=== PATIENT | female | born 1940 | race Hispanic/Latino ===

== ENCOUNTER 2018-01-27 11:15 | Inpatient (IN) | payer MEDICARE, OTHER ==
[~2018-01-27] VITALS: Ht 154.9 cm; Wt 93.4 kg
[~2018-01-27 11:15] MED LIST: ASCORBIC ACID500 MG PO; COZAAR25 MG PO; CRESTOR10 MG PO; Calcium Carbonate PO; DOXYCYCLINE HY100 MG PO; FUROSEMIDE20 MG PO; HUMULIN R100 UNIT/2 SQ; Insulin Detemir SQ; LANTUS100 UNITS/ SQ; LEVAQUIN500 MG PO; LEVOTHYROXINE75 MCG PO; LOSARTAN POTASS50 MG PO; MAGNESIUM OXID400 MG PO; Multivitamins/Minerals PO; NOVOLOG100 UNITS/ SQ; PLAVIX75 MG PO; PROTONIX40 MG/ML PO; SANTYL15 GM TP; TRAMADOL-ACETAMI1 EA; ZINC SULFATE220 M1 PO
[2018-01-27 11:59] LABS: BASOPHILS % 0.3 % (0.0-1.0); HEMATOCRIT 36.2 % (34.2-44.1); HEMOGLOBIN 12.1 g/dL (12.0-16.0); LYMPHOCYTES # (AUTO) 1.2 (1.0-3.2); LYMPHOCYTES % 16.6 % (18.0-39.1); MEAN CORPUSCULAR HEMOGLOBIN 33.6 pg (28-32); MEAN CORPUSCULAR HGB CONC 33.4 g/dL (31-35); MEAN CORPUSCULAR VOLUME 100.6 fL (81-99); MONOCYTES % 13.5 % (4.4-11.3); NEUTROPHILS % 68.8 % (38.7-80.0); PLATELET COUNT 162 x10e3/uL (140-360); RED CELL DISTRIBUTION WIDTH 13.1 % (11.7-14.4)
[2018-01-27] MEDS ORDERED: ALBUTEROL/IPRATROPIUM 3 ML NEB NEB ONE (12:00)
[2018-01-27 12:07] LABS: INR 1.41; PARTIAL THROMBOPLASTIN TIME 27.3 seconds (23.8-35.5); PROTHROMBIN TIME 16.2 seconds (11.9-14.5)
[2018-01-27 12:16] LABS: ALBUMIN 3.3 g/dL (3.5-5.0); ALBUMIN/GLOBULIN RATIO 0.8 (0.8-2.0); ANION GAP 11.2 mmol/L (8-16); CALCIUM 8.4 mg/dL (8.4-10.2); CREATININE, SERUM 1.27 mg/dL (0.57-1.11); POTASSIUM 4.2 mmol/L (3.5-5.1)
--- NOTE | 2018-01-27 12:19 | Diagnostic Imaging Report ---
Exam: Head CT without contrast History: Altered mental status Comparison studies: None Technique: Axial images were obtained from the skull base to the vertex. Coronal and sagittal images reconstructed from the axial data. Intravenous contrast: None Findings: Scalp: No abnormalities. Bones: No fractures, blastic or lytic lesions. Brain sulci: Mildly prominent Ventricles: Mild compensatory dilatation. No hydrocephalus. Extra-axial spaces: No masses, no fluid collection. Parenchyma: No mass, acute hemorrhage or acute cortical vascular insults. A few hypodensities in the supratentorial white matter are nonspecific but most compatible with chronic small vessel ischemic changes. Sellar/suprasellar region: No abnormalities. Craniocervical junction: Patent foramen magnum. No Chiari one malformation. Incidental findings: * Intraocular lens replacements related to previous cataract surgery. * Atherosclerotic calcifications in the carotid siphons and intradural vertebral arteries. * Nonspecific partial left mastoid opacification. * Opacified right EAC which could be correlated with direct visualization with nonspecific right middle ear mastoid opacification and sequela chronic inflammation in the right mastoids which are underpneumatized with sclerotic changes. IMPRESSION: No acute abnormalities. Chronic findings: 1. Mild generalized volume loss. 2. Mild supratentorial microvascular ischemic changes. 3. Incidental findings as described. Signed by: Dr. Melchor Celaya M.D. on 01/27/2018 12:16 PM
[2018-01-27 12:22] LABS: CREATINE KINASE MB 3.1 ng/mL (0-5.0)
--- NOTE | 2018-01-27 12:30 | Diagnostic Imaging Report ---
PROCEDURE: A single AP view of the chest. COMPARISON: 09/24/16 INDICATIONS: ALTERED MENTAL STATUS, ELEVATD BLOOD PRESSURE AND SUGAR LEVEL FINDINGS: Lines/tubes: None. Lungs: Limited by body habitus and low volumes. Right mid lung linear atelectasis/scarring. Pleura: There is no pleural effusion or pneumothorax. Heart and mediastinum: Cardiomediastinal silhouette is accentuated by low volumes and technique. Aorta is calcified and tortuous. Bones: No acute bony abnormality. IMPRESSION: Very limited study. No definite acute cardiopulmonary abnormalities. Dictated by: Saw Mckeon M.D. on 01/27/2018 at 12:31 Electronically approved by: Saw Mckeon M.D. on 01/27/2018 at 12:31
[2018-01-27 12:42] LABS: BILIRUBIN,URINE NEGATIVE (NEGATIVE); CLARITY,URINE HAZY (CLEAR); COLOR,URINE YELLOW (YELLOW); KETONES,URINE NEGATIVE (NEGATIVE); LEUKOCYTE ESTERASE ,URINE NEGATIVE (NEGATIVE); NITRITE,URINE NEGATIVE (NEGATIVE); PROTEIN,URINE DIPSTICK 2+ (NEGATIVE); URINE UROBILINOGEN 1 mg/dL (0.2 - 1)
[2018-01-27 12:53] LABS: ABG PCO2 56 mmHg (41-51); ABG PH 7.38 (7.31-7.41)
[2018-01-27 12:53] LABS: BACTERIA,URINE MANY /HPF; EPITHELIAL CELLS,URINE FEW /LPF; MUCUS,URINE FEW (RARE); RBC,URINE 0-5 /HPF (0-5)
[2018-01-27 12:54] LABS: ABG HCO3 33 mmol/L (23-28); ABG PO2 72 mmHg (80-105)
[2018-01-27] MEDS ORDERED: DEXTROSE 50% SYRINGE 50 ML IV PRN ×2 (13:30→18:15)
[2018-01-27] MEDS ORDERED: FUROSEMIDE INJ 10 MG/ML 4 ML VIAL IV ONE (14:15)
--- NOTE | 2018-01-27 14:29 | Diagnostic Imaging Report ---
PROCEDURE: A single AP view of the chest. COMPARISON: Same day at 1156 hrs. INDICATIONS: HYPOXIA FINDINGS: Lines/tubes: None. Lungs: Low lung volumes and body habitus limits evaluation. Unchanged right lower lung field linear atelectasis or scarring. Central vascular congestion, accentuated by low lung volumes. Pleura: There is no significant pleural effusion or pneumothorax. Heart and mediastinum: The cardiac silhouette is enlarged on this AP view. Bones: No acute bony abnormality. IMPRESSION: Limited study as above. No significant interval change from prior exam. Central vascular congestion, accentuated by low lung volumes. Dictated by: Saw Mckeon M.D. on 01/27/2018 at 14:30 Electronically approved by: Saw Mckeon M.D. on 01/27/2018 at 14:30
[2018-01-27] MEDS: LEVOFLOXACIN 500MG/D5W 100ML 100 ML IV SCH (14:40)
[2018-01-27] MEDS ORDERED: GENTAMICIN 120MG/NS 100ML 100 ML IV STA (15:11)
[2018-01-27] MEDS ORDERED: AZTREONAM 2GM/NS 100ML 2 GM in AZTREONAM 2GM/NS 100ML 100 ML IV ONE (15:15)
[2018-01-27] MEDS ORDERED: CLONIDINE HCL 0.2 MG TAB PO ONE (17:00)
[2018-01-27] MEDS: INSULIN REGULAR, HUMAN 100 UNIT/1 ML 3ML VIAL SQ SCH ×3 (17:05→21:32)
[2018-01-27] MEDS ORDERED: ASPIRIN 81 MG CHEW TAB PO ONE (18:15)
--- OUTSIDE RECORDS SUMMARY | 2018-01-27 18:43 | XMS REPORT ---
Author [facility] Address Unknown Phone Unavailable Care Team Providers Care Unit Leader Name Role Phone SAVANNAH YEUNG Unavailable Unavailable Problems This patient has no known problems. Allergies, Adverse Reactions, Alerts This patient has no known allergies or adverse reactions. Medications This patient has no known medications. Results Test Description Test Time Test Comments Text Results Atomic Results Result Comments CHEST SINGLE (NOT PORTABLE) [address] [address] Patient Name: EMILY KILLIAN MR #: [id number] : 1940 Age/Sex: 77/F Req #: [id number] Adm Physician: Ordered by: SAVANNAH YEUNG DO Report #: [id number] Location: ER Room/Bed: Procedure: [id number] DX/CHEST SINGLE (NOT PORTABLE) Exam Date: 01/27/18 Exam Time: 1350 REPORT STATUS: Signed PROCEDURE: A single AP view of the chest. COMPARISON: Same day at 1156 hrs. INDICATIONS: HYPOXIA FINDINGS: Lines/tubes: None. Lungs: Low lung volumes and body habitus limits evaluation. Unchanged right lower lung field linear atelectasis or scarring. Central vascular congestion, accentuated by low lung volumes. Pleura: There is no significant pleural effusion or pneumothorax. Heart and mediastinum: The cardiac silhouette is enlarged on this AP view. Bones: No acute bony abnormality. IMPRESSION: Limited study as above. No significant interval change from prior exam. Central vascular congestion, accentuated by low lung volumes. Dictated by: Saw Obrien M.D. on 01/27/2018 at 14:30 Electronically approved by: Saw Obrien M.D. on 01/27/2018 at 14:30 Dictated By: SAW OBRIEN MD 1430 Transcribed By: REHANA on 01/27/18 1430 COPY TO: SAVANNAH YEUNG DO CHEST SINGLE (PORTABLE) [place] [address] Patient Name: EMILY KILLIAN MR #: [id number] : 1940 Age/Sex: 77/F Req #: [id number] Adm Physician: Ordered by: SAVANNAH YEUNG DO Report #: [id number] Location: ER Room/Bed: Procedure: [id number] DX/CHEST SINGLE (PORTABLE) Exam Date: 01/27/18 Exam Time: 1151 REPORT STATUS: Signed PROCEDURE: A single AP view of the chest. COMPARISON: 09/24/16 INDICATIONS: ALTERED MENTAL STATUS, ELEVATD BLOOD PRESSURE AND SUGAR LEVEL FINDINGS: Lines/tubes: None. Lungs: Limited by body habitus and low volumes. Right mid lung linear atelectasis/scarring. Pleura: There is no pleural effusion or pneumothorax. Heart and mediastinum: Cardiomediastinal silhouette is accentuated by low volumes and technique. Aorta is calcified and tortuous. Bones: No acute bony abnormality. IMPRESSION: Very limited study. No definite acute cardiopulmonary abnormalities. Dictated by: Saw Obrien M.D. on 01/27/2018 at 12: 31 Electronically approved by: Saw Obrien M.D. on 01/27/2018 at 12: 31 Dictated By: SAW OBRIEN MD 1231 Transcribed By: REHANA on 01/27/18 1231 COPY TO: SAVANNAH YEUNG DO CT BRAIN WO [place] [address] Patient Name: EMILY KILLIAN MR #: [id number] : 1940 Age/Sex: 77/F Req #: [id number] Adm Physician: Ordered by: SAVANNAH YEUNG DO Report #: [id number] Location: ER Room/Bed: Procedure: [id number] CT/CT BRAIN WO Exam Date: 01/27/18 Exam Time: 1151 REPORT STATUS: Signed Exam: Head CT without contrast History: Altered mental status Comparison studies: None Technique: Axial images were obtained from the skull base to the vertex. Coronal and sagittal images reconstructed from the axial data. Intravenous contrast: None Findings: Scalp: No abnormalities. Bones: No fractures, blastic or lytic lesions. Brain sulci: Mildly prominent Ventricles: Mild compensatory dilatation. No hydrocephalus. Extra-axial spaces: No masses, no fluid collection. Parenchyma: No mass, acute hemorrhage or acute cortical vascular insults. A few hypodensities in the supratentorial white matter are nonspecific but most compatible with chronic small vessel ischemic changes. Sellar/suprasellar region: No abnormalities. Craniocervical junction: Patent foramen magnum. No Chiari one malformation. Incidental findings: * Intraocular lens replacements related to previous cataract surgery. * Atherosclerotic calcifications in the carotid siphons and intradural vertebral arteries. * Nonspecific partial left mastoid opacification. * Opacified right EAC which could be correlated with direct visualization with nonspecific right middle ear mastoid opacification and sequela chronic inflammation in the right mastoids which are underpneumatized with sclerotic changes. IMPRESSION: No acute abnormalities. Chronic findings: 1. Mild generalized volume loss. 2. Mild supratentorial microvascular ischemic changes. 3. Incidental findings as described. Signed by: Dr. Marlo Celaya M.D. on 01/27/2018 12:16 PM Dictated By: MARLO CELAYA MD 1216 Transcribed By: JACK on 01/27/18 1216 COPY TO: SAVANNAH YEUNG DO
[2018-01-27] MEDS ORDERED: ASPIR-LOW81 MG PO (18:56)
[2018-01-27] MEDS ORDERED: RANITIDINE HCL300 MG PO (18:56)
[2018-01-27] MEDS ORDERED: LANTUS 3ML100 UNITS/ SC (18:56)
[2018-01-27] MEDS ORDERED: CRESTOR10 MG PO (18:56)
[2018-01-27] MEDS ORDERED: NIFEDIPINE ER30 M1 PO (18:56)
[2018-01-27] MEDS ORDERED: METOPROLOL SUCC25 MG PO (18:56)
[2018-01-27] MEDS ORDERED: PANTOPRAZOLE SO40 MG PO (18:56)
[2018-01-27] MEDS ORDERED: NOVOLOG100 UNIT/1 SC ×3 (18:56)
[2018-01-27] MEDS ORDERED: NS IV SCH (21:00)
[2018-01-27] MEDS ORDERED: AZTREONAM IV SCH (21:00)
[2018-01-27] MEDS: ALBUTEROL SULF 0.083% NEB SOLN 3 ML NEB NEB SCH (21:30)
[2018-01-27] MEDS: SODIUM CHLORIDE 0.9% 1000ML 1,000 ML IV SCH (21:38)
[2018-01-27 21:50] LABS: CREATINE KINASE MB 2.9 ng/mL (0-5.0)
[2018-01-27] MEDS ORDERED: NIFEDIPINE CR 30 MG TAB PO PRN (22:00)
[2018-01-28] MEDS: ALBUTEROL SULF 0.083% NEB SOLN 3 ML NEB NEB SCH ×7 (00:15→23:00)
[2018-01-28] MEDS: AZTREONAM 1 GM VIAL IV SCH ×3 (00:30→21:12)
[2018-01-28] MEDS: SODIUM CHLORIDE 0.9% 1000ML 1,000 ML IV SCH ×2 (02:37→11:51)
[2018-01-28 06:16] LABS: BASOPHILS % 0.5 % (0.0-1.0); HEMATOCRIT 37.1 % (34.2-44.1); HEMOGLOBIN 12.5 g/dL (12.0-16.0); LYMPHOCYTES # (AUTO) 1.1 (1.0-3.2); LYMPHOCYTES % 19.2 % (18.0-39.1); MEAN CORPUSCULAR HEMOGLOBIN 33.7 pg (28-32); MEAN CORPUSCULAR HGB CONC 33.7 g/dL (31-35); MONOCYTES # (AUTO) 0.6 (0.2-0.8); MONOCYTES % 11.3 % (4.4-11.3); NEUTROPHILS # (AUTO) 3.8 (2.1-6.9); NEUTROPHILS % 68.1 % (38.7-80.0); PLATELET COUNT 167 x10e3/uL (140-360); RED BLOOD COUNT 3.71 x10e6/uL (3.6-5.1); RED CELL DISTRIBUTION WIDTH 13.1 % (11.7-14.4)
[2018-01-28] MEDS: LEVOTHYROXINE SODIUM 75 MCG TAB PO SCH (06:20)
--- NOTE | 2018-01-28 06:35 | Diagnostic Imaging Report ---
EXAM: CHEST SINGLE (PORTABLE), AP 1 view INDICATION: Pneumonia COMPARISON: AP view of the chest January 27, 2018 FINDINGS: LINES/TUBES: None LUNGS: Bibasilar atelectasis versus consolidations. PLEURA: No effusions or pneumothorax. HEART AND MEDIASTINUM: Stable appearance of cardiomediastinal silhouette. BONES AND SOFT TISSUES: No acute findings. IMPRESSION: No interval change. Signed by: Dr. Lolita Montiel M.D. on 01/28/2018 6:32 AM
[2018-01-28 06:44] LABS: ALBUMIN/GLOBULIN RATIO 0.8 (0.8-2.0); ANION GAP 13.7 mmol/L (8-16); CALCIUM 8.4 mg/dL (8.4-10.2); POTASSIUM 3.7 mmol/L (3.5-5.1)
[2018-01-28 07:05] LABS: CREATINE KINASE MB 1.4 ng/mL (0-4.3)
[2018-01-28] MEDS: INSULIN REGULAR, HUMAN 100 UNIT/1 ML 3ML VIAL SQ SCH ×4 (07:55→21:13)
[2018-01-28] MEDS ORDERED: NON-FORMULARY MEDICATION (Losartan Potassium 100 MG) PO SCH (09:00)
[2018-01-28] MEDS: LOSARTAN POTASSIUM 100 MG TAB PO SCH (09:10)
[2018-01-28] MEDS: FUROSEMIDE 20 MG TAB PO SCH (09:10)
[2018-01-28] MEDS: CLOPIDOGREL BISULFATE 75 MG TAB PO SCH (09:10)
[2018-01-28] MEDS: LEVOFLOXACIN 500MG/D5W 100ML 100 ML IV SCH (09:20)
[2018-01-28] MEDS ORDERED: ONDANSETRON HCL INJ 2 MG/ML VIAL IV PRN (14:30)
[2018-01-28] MEDS ORDERED: FUROSEMIDE INJ 10 MG/ML 2 ML VIAL IV SCH (14:30)
[2018-01-28] MEDS ORDERED: GENTAMICIN 120MG/NS 100ML 100 ML IV SCH (16:00)
[2018-01-28 16:04] VITALS: BP 197/79
[2018-01-28] MEDS: HYDRALAZINE HCL 20 MG/ML VIAL IV PRN (17:00)
[2018-01-28] MEDS ORDERED: SODIUM CHLORIDE 0.9% 250ML 250 ML ONE (17:18)
[2018-01-28] MEDS: GUAIFENESIN 600 MG TAB PO SCH ×2 (18:01→23:59)
[2018-01-28 18:18] VITALS: BP 197/79
[2018-01-28 18:29] VITALS: BP 197/79
[2018-01-28 20:00] VITALS: BP 149/67
[2018-01-28] MEDS: ACETAMINOPHEN 325 MG TAB PO PRN (20:15)
[2018-01-28] MEDS: SIMVASTATIN 40 MG TAB PO SCH (20:30)
[2018-01-28] MEDS: INSULIN DETEMIR 100 UNIT/ML PEN SQ SCH (21:13)
[2018-01-29] VITALS (8 sets, daily range): BP systolic 144–183; BP diastolic 63–81
[2018-01-29] MEDS: ALBUTEROL SULF 0.083% NEB SOLN 3 ML NEB NEB SCH ×6 (02:46→22:40)
[2018-01-29] MEDS: AZTREONAM 1 GM VIAL IV SCH ×3 (06:38→21:34)
[2018-01-29] MEDS: LEVOTHYROXINE SODIUM 75 MCG TAB PO SCH (06:38)
[2018-01-29] MEDS: GUAIFENESIN 600 MG TAB PO SCH ×3 (06:38→17:23)
[2018-01-29] MEDS: INSULIN REGULAR, HUMAN 100 UNIT/1 ML 3ML VIAL SQ SCH ×4 (07:30→21:32)
[2018-01-29 07:32] LABS: BASOPHILS % 0.3 % (0.0-1.0); EOSINOPHILS % 0.6 % (0.0-6.0); HEMATOCRIT 37.9 % (34.2-44.1); HEMOGLOBIN 12.4 g/dL (12.0-16.0); LYMPHOCYTES # (AUTO) 1.4 (1.0-3.2); LYMPHOCYTES % 22.5 % (18.0-39.1); MEAN CORPUSCULAR HEMOGLOBIN 32.8 pg (28-32); MEAN CORPUSCULAR HGB CONC 32.7 g/dL (31-35); MEAN CORPUSCULAR VOLUME 100.3 fL (81-99); MONOCYTES # (AUTO) 0.9 (0.2-0.8); MONOCYTES % 13.4 % (4.4-11.3); NEUTROPHILS % 62.7 % (38.7-80.0); PLATELET COUNT 151 x10e3/uL (140-360); RED BLOOD COUNT 3.78 x10e6/uL (3.6-5.1); RED CELL DISTRIBUTION WIDTH 13.2 % (11.7-14.4)
[2018-01-29 07:50] LABS: ANION GAP 10.4 mmol/L (8-16); CALCIUM 8.3 mg/dL (8.4-10.2); CREATININE, SERUM 0.98 mg/dL (0.57-1.11); MAGNESIUM 1.4 MG/DL (1.3-2.1); POTASSIUM 3.4 mmol/L (3.5-5.1)
[2018-01-29 08:01] LABS: B-TYPE NATRIURETIC PEPTIDE2 214.8 pg/mL (0-100)
[2018-01-29 08:14] LABS: FREE T4 (FREE THYROXINE) 1.28 ng/dL (0.9-1.8); THYROID STIMULATING HORMONE 2.676 uIU/mL (0.350-4.940)
[2018-01-29 08:39] LABS: ALBUMIN 2.7 g/dL (3.5-5.0); BILIRUBIN,DIRECT 0.5 mg/dL (0.0-0.5)
[2018-01-29] MEDS ORDERED: ENOXAPARIN SOD INJ 40 MG/0.4 ML SYR SC SCH (09:00)
[2018-01-29] MEDS ORDERED: POTASSIUM CHLORIDE 20 MEQ TAB CR PO SCH (09:57)
[2018-01-29] MEDS: LOSARTAN POTASSIUM 100 MG TAB PO SCH (10:01)
[2018-01-29] MEDS: METOPROLOL SUCCINATE 25 MG TAB XL PO SCH (10:02)
[2018-01-29] MEDS: CLOPIDOGREL BISULFATE 75 MG TAB PO SCH (10:02)
[2018-01-29] MEDS: FUROSEMIDE 20 MG TAB PO SCH (10:02)
[2018-01-29] MEDS: PANTOPRAZOLE SOD 40 MG TABEC PO SCH (10:02)
[2018-01-29] MEDS: ACETAMINOPHEN 325 MG TAB PO PRN (12:02)
[2018-01-29] MEDS: HYDRALAZINE HCL 20 MG/ML VIAL IV PRN ×2 (12:02→16:47)
[2018-01-29] MEDS: DOCUSATE SODIUM 100 MG CAP PO SCH (16:47)
[2018-01-29] MEDS ORDERED: GENTAMICIN 120MG/NS 100ML 100 ML IV SCH (20:00)
[2018-01-29] MEDS: SIMVASTATIN 40 MG TAB PO SCH (21:31)
[2018-01-29] MEDS: INSULIN DETEMIR 100 UNIT/ML PEN SQ SCH (21:33)
[2018-01-30 00:30] VITALS: BP 146/66
[2018-01-30] MEDS: GUAIFENESIN 600 MG TAB PO SCH ×3 (00:58→12:33)
[2018-01-30] MEDS: ALBUTEROL SULF 0.083% NEB SOLN 3 ML NEB NEB SCH ×3 (02:37→10:52)
[2018-01-30 03:18] VITALS: BP 146/66
[2018-01-30] MEDS: LEVOTHYROXINE SODIUM 75 MCG TAB PO SCH (04:25)
[2018-01-30] MEDS: AZTREONAM 1 GM VIAL IV SCH ×2 (04:40→14:00)
[2018-01-30 05:26] VITALS: BP 150/65
[2018-01-30 07:22] LABS: BASOPHILS % 0.5 % (0.0-1.0); EOSINOPHILS # (AUTO) 0.2 (0.0-0.4); HEMATOCRIT 37.8 % (34.2-44.1); HEMOGLOBIN 12.5 g/dL (12.0-16.0); LYMPHOCYTES # (AUTO) 1.4 (1.0-3.2); LYMPHOCYTES % 20.9 % (18.0-39.1); MEAN CORPUSCULAR HGB CONC 33.1 g/dL (31-35); MEAN CORPUSCULAR VOLUME 99.7 fL (81-99); MONOCYTES % 15.5 % (4.4-11.3); NEUTROPHILS % 59.8 % (38.7-80.0); PLATELET COUNT 157 x10e3/uL (140-360); RED BLOOD COUNT 3.79 x10e6/uL (3.6-5.1); RED CELL DISTRIBUTION WIDTH 13.1 % (11.7-14.4)
[2018-01-30] MEDS: INSULIN REGULAR, HUMAN 100 UNIT/1 ML 3ML VIAL SQ SCH ×2 (07:30→11:30)
[2018-01-30 07:35] VITALS: BP 129/58
[2018-01-30 08:13] LABS: ANION GAP 8.9 mmol/L (8-16); CALCIUM 8.5 mg/dL (8.4-10.2); CREATININE, SERUM 1.02 mg/dL (0.57-1.11); MAGNESIUM 1.5 MG/DL (1.3-2.1); POTASSIUM 3.9 mmol/L (3.5-5.1)
[2018-01-30] MEDS: METOPROLOL SUCCINATE 25 MG TAB XL PO SCH (08:41)
[2018-01-30] MEDS: PANTOPRAZOLE SOD 40 MG TABEC PO SCH (08:41)
[2018-01-30] MEDS: DOCUSATE SODIUM 100 MG CAP PO SCH (08:41)
[2018-01-30] MEDS: CLOPIDOGREL BISULFATE 75 MG TAB PO SCH (08:41)
[2018-01-30] MEDS: FUROSEMIDE 20 MG TAB PO SCH (08:41)
[2018-01-30] MEDS: LOSARTAN POTASSIUM 100 MG TAB PO SCH (08:41)
[2018-01-30] MEDS ORDERED: POLYETHYLENE GLYCOL 3350 17 GM PACK PO SCH (09:00)
[2018-01-30 10:20] VITALS: BP 129/58
[2018-01-30] MEDS ORDERED: COLACE100 M1 PO (11:24)
[2018-01-30] MEDS ORDERED: CEFTIN PO (11:24)
[2018-01-30 11:39] VITALS: BP 128/60
--- NOTE | 2018-01-30 12:05 | Diagnostic Imaging Report ---
EXAM: US ABDOMEN COMPLETE INDICATION: Elevated liver enzymes COMPARISON: None TECHNIQUE: Transverse and longitudinal nichols scale and color doppler sonographic images of the upper abdomen were obtained. FINDINGS: LIVER 11 cm in the right midclavicular line. Normal echogenicity, normal contour, no masses. SPLEEN 8.3 cm in maximum diameter. Normal echogenicity, no masses. GALLBLADDER No stones, sludge, wall-thickening or pericholecystic fluid. Negative sonographic Muhammad's sign. BILE DUCTS No intra nor extra-hepatic biliary dilation. Common bile duct measures 0.3 cm PANCREAS: Not visualized secondary to bowel gas RIGHT KIDNEY: 8.5 x 4.3 x 4.1 cm Echogenicity: Normal Collecting System: No hydronephrosis Stones: None Cyst/Mass: None LEFT KIDNEY: 9.3 x 4.9 x 4.1 cm Echogenicity: Normal Collecting System: No hydronephrosis Stones: None Cyst/Mass: None VESSELS: Aorta: Not visualized secondary to bowel gas Inferior Vena Cava: Not visualized secondary to bowel gas Main Portal Vein: 0.8 cm, normal size with hepatopetal flow. FREE FLUID: Partially visualized right pleural effusion IMPRESSION: Normal right upper quadrant ultrasound within limitations of the exam. Partially visualized right pleural effusion. Signed by: Dr. Lolita Montiel M.D. on 01/29/2018 7:55 PM
--- NOTE | 2018-01-30 21:54 | Discharge Summary ---
ADMISSION DIAGNOSES 1. Urinary tract infection. 2. Hypertension. 3. Type-2 diabetes. 4. Coronary artery disease. 5. Hyperlipidemia. 6. Elevated liver function tests. 7. Altered mental status. DISCHARGE DIAGNOSES 1. Urinary tract infection. 2. Hypertension. 3. Type-2 diabetes. 4. Coronary artery disease. 5. Hyperlipidemia. 6. Elevated liver function tests. 7. Altered mental status. 8. Ruled out cerebrovascular accident. HISTORY: Patient has a history of type-2 diabetes, CAD with stent, hypertension, hypothyroidism, hyperlipidemia. Surgical history of left total knee replacement, right ankle ORIF, hysterectomy. HOSPITAL COURSE: A 77-year-old female, brought to the ER by family for AMS. Upon exam, the patient is complaining of right ear and throat pain. She was taking Levaquin with no relief. She was recently back from [place] and that is when the confusion and throat pain occurred. During the exam, the patient is alone, alert, and oriented times 4, complains of cough and congestion. Fever last night was 100.5 per ER nurse. Patient was started on gentamicin and Azactam per ER doc. Nelson was discontinued. Urine culture pending. LFTs were elevated and gradually resolved. Patient had a CAT scan of the head that showed no acute abnormalities, mild generalized volume loss. Mild supratentorial microvascular ischemic changes. Chest x-ray showed no definite acute cardiopulmonary abnormalities. Echo showed an EF of 60%-65% with moderate left ventricular hypertrophy, mild mitral regurg, trace tricuspid regurg. Blood cultures were negative. Urine culture showed E. coli. At time of discharge, WBC was 6.64, hemoglobin of 12.5, hematocrit of 37.8. Sodium of 135, potassium 3.9, GFR of 53, creatinine of 1.02. Her flu swab was negative and vital signs remained stable. Patient sent home on Ceftin per urine culture sensitivities. She has a walker and a wheelchair at home. She refused home health. She lives alone, but her family lives right next door. She is feeling much better, no longer confused, having no complaints at all and ready to go home. She will follow up with primary care in 1-2 weeks. Dictated By: Susanna Baugh NP PITO AZEVEDO MD Job#: [id number] CQ
== END 2018-01-30 15:30 | disposition home or self-care (01) | DRG 690 ==
LOC: ER 11:15 → ERHOLD 18:38 → MED/SURG3 01-28 15:21
PROVIDERS: ADMIT Internal Medicine; ATTEND Internal Medicine
DX: N39.0 Urinary tract infection, site not specified (principal); E11.9 Type 2 diabetes mellitus without complications; I08.1 Rheumatic disorders of both mitral and tricuspid valves; E87.1 Hypo-osmolality and hyponatremia; I10 Essential (primary) hypertension; B96.20 Unspecified Escherichia coli [E. coli] as the cause of diseases classified elsewhere; I25.10 Atherosclerotic heart disease of native coronary artery without angina pectoris; I51.7 Cardiomegaly; E87.6 Hypokalemia; R94.5 Abnormal results of liver function studies; Z95.5 Presence of coronary angioplasty implant and graft
CPT/HCPCS: 36415; 36600; 51700; 70450; 71045; 76700; 80048; 80053; 80076; 81001; 82010; 82550; 82553; 82805; 82948; 83036; 83605; 83735; 83880; 84439; 84443; 84484; 85025; 85610; 85730; 87040; 87086; 87186; 87400; 93005; 93306; 94640; 97139; 99285; J0360; J1580; J1650; J1940; J1956; J7030; J7050; J7799

== ENCOUNTER 2018-05-04 10:20 | Inpatient (IN) | payer MEDICARE, OTHER ==
[~2018-05-04] VITALS: Ht 154.9 cm; Wt 94.3 kg
[2018-05-04] MEDS: ALBUTEROL/IPRATROPIUM 3 ML NEB NEB SCH ×3 (00:50→20:15)
[~2018-05-04 10:20] MED LIST changes: +ASPIR-LOW81 MG PO; +CEFTIN PO; +COLACE100 M1 PO; +LANTUS 3ML100 UNITS/ SC; +METOPROLOL SUCC25 MG PO; +NIFEDIPINE ER30 M1 PO; +NOVOLOG100 UNIT/1 SC; +PANTOPRAZOLE SO40 MG PO; +RANITIDINE HCL300 MG PO
[2018-05-04 11:41] LABS: BILIRUBIN,URINE NEGATIVE (NEGATIVE); CLARITY,URINE CLEAR (CLEAR); COLOR,URINE YELLOW (YELLOW); KETONES,URINE NEGATIVE (NEGATIVE); LEUKOCYTE ESTERASE ,URINE NEGATIVE (NEGATIVE); NITRITE,URINE NEGATIVE (NEGATIVE); PROTEIN,URINE DIPSTICK TRACE (NEGATIVE); URINE UROBILINOGEN 0.2 mg/dL (0.2 - 1)
[2018-05-04 11:50] LABS: BACTERIA,URINE MODERATE /HPF; EPITHELIAL CELLS,URINE RARE /LPF; RBC,URINE 0-5 /HPF (0-5); WBC,URINE (MAN) 0-5 /HPF (0-5)
--- NOTE | 2018-05-04 11:59 | Diagnostic Imaging Report ---
EXAMINATION: Head CT HISTORY: Altered mental status, hallucinations, slurred speech COMPARISON: None. TECHNIQUE: Multidetector axial images were obtained without contrast from the foramen magnum to the vertex . The images were reconstructed using brain and bone algorithms. Thin section brain images were reformatted into coronal and sagittal planes. Intravenous contrast: None. Image quality: Motion/streaking artifact limits the evaluation of the skull base and posterior cranial fossa. FINDINGS: Parenchyma: 1. Few scattered and moderate confluent periventricular white matter hypodensities, most likely nonspecific chronic microvascular ischemic changes. 2. No mass or hemorrhage. No CT evidence of acute territorial vascular insult. Extra-axial spaces:No abnormal density. No extra-axial fluid collections Brain volume: Normal for age. Ventricles: No hydrocephalus or displacement. Arteries: No density suggestive of thrombus. Dural sinuses: No abnormal density. Extra-axial spaces: No abnormal density. Foramen magnum: No mass, Chiari malformation, or basilar invagination. Sella: No obvious mass. Paranasal/mastoid sinuses: Imaged portions unremarkable. Skull/Scalp: No lytic or blastic lesions. No fractures. IMPRESSION: 1. No acute intracranial hemorrhage or cortical infarct. 2. Moderate chronic microvascular ischemic changes Signed by: Dr. Carole Gong M.D. on 05/04/2018 11:56 AM
--- NOTE | 2018-05-04 12:08 | Diagnostic Imaging Report ---
PROCEDURE: A single AP view of the chest. COMPARISON: DX, CHEST 2 VIEWS, 09/24/2016, 11:36. INDICATIONS: SHORTNESS OF BREATH FINDINGS: Lines/tubes: None. Lungs: Hypoinflated lungs. Worsening linear opacities in the right mid to lower lung. Interval development of patchy, right infrahilar and left lower lobe opacities. No consolidation. Pleura: There is no pleural effusion or pneumothorax. Heart and mediastinum: Cardiac silhouette is likely enlarged, and accentuated by low lung volumes and AP projection. Central pulmonary venous congestion and perihilar interstitial opacities. Bones: No acute bony abnormality. IMPRESSION: 1. enlarged cardiac silhouette with central pulmonary venous congestion and perihilar interstitial opacities, likely reflecting interstitial edema. 2. Worsening linear opacities in the right mid to lower lung likely reflects subsegmental atelectasis in this patient with hypoinflated lungs. 3. Patchy right infrahilar and left lower lobe opacities likely represent atelectasis due to low lung volumes, however, developing alveolar edema is also a consideration. Flakito Maria M.D. Dictated by: Flakito Maria M.D. on 05/04/2018 at 12:13 Electronically approved by: Flakito Maria M.D. on 05/04/2018 at 12:13
[2018-05-04 12:31] LABS: BASOPHILS % 0.6 % (0.0-1.0); EOSINOPHILS # (AUTO) 0.1 (0.0-0.4); EOSINOPHILS % 1.6 % (0.0-6.0); HEMATOCRIT 37.4 % (34.2-44.1); HEMOGLOBIN 12.3 g/dL (12.0-16.0); LYMPHOCYTES # (AUTO) 1.5 (1.0-3.2); LYMPHOCYTES % 29.7 % (18.0-39.1); MEAN CORPUSCULAR HEMOGLOBIN 32.7 pg (28-32); MEAN CORPUSCULAR HGB CONC 32.9 g/dL (31-35); MEAN CORPUSCULAR VOLUME 99.5 fL (81-99); MONOCYTES # (AUTO) 0.6 (0.2-0.8); MONOCYTES % 12.2 % (4.4-11.3); NEUTROPHILS # (AUTO) 2.8 (2.1-6.9); NEUTROPHILS % 54.9 % (38.7-80.0); PLATELET COUNT 145 x10e3/uL (140-360); RED BLOOD COUNT 3.76 x10e6/uL (3.6-5.1); RED CELL DISTRIBUTION WIDTH 12.7 % (11.7-14.4)
[2018-05-04 12:48] LABS: ALBUMIN 3.3 g/dL (3.5-5.0); ALBUMIN/GLOBULIN RATIO 0.9 (0.8-2.0); ANION GAP 11.4 mmol/L (8-16); CREATININE, SERUM 0.98 mg/dL (0.57-1.11); POTASSIUM 4.4 mmol/L (3.5-5.1)
[2018-05-04 12:49] LABS: CREATINE KINASE MB 1.8 ng/mL (0-5.0)
[2018-05-04 12:52] LABS: B-TYPE NATRIURETIC PEPTIDE2 1019.8 pg/mL (0-100)
[2018-05-04] MEDS ORDERED: FUROSEMIDE INJ 10 MG/ML 4 ML VIAL IV ONE (13:00)
[2018-05-04] MEDS ORDERED: LABETALOL HCL 5 MG/ML 20ML VIAL IV PRN (15:00)
[2018-05-04] MEDS: LEVOFLOXACIN 500MG/D5W 100ML 100 ML IV SCH (15:45)
[2018-05-04] MEDS ORDERED: SODIUM CHLORIDE 0.9% 250ML 250 ML ONE (15:45)
[2018-05-04 16:00] VITALS: BP 195/84
[2018-05-04] MEDS ORDERED: NIFEDIPINE CR 30 MG TAB PO PRN (16:45)
[2018-05-04] MEDS ORDERED: TRAMADOL/APAP 37.5MG-325MG TAB PO PRN (16:45)
[2018-05-04] MEDS ORDERED: DEXTROSE 50% SYRINGE 50 ML IV PRN (16:45)
[2018-05-04] MEDS: METOPROLOL SUCCINATE 25 MG TAB XL PO SCH (17:20)
[2018-05-04] MEDS: LISINOPRIL 10 MG TAB PO SCH (17:20)
[2018-05-04 19:09] VITALS: BP 191/83
[2018-05-04 20:00] VITALS: BP 197/89
[2018-05-04] MEDS ORDERED: ONDANSETRON HCL INJ 2 MG/ML VIAL IV PRN (20:15)
[2018-05-04 20:42] LABS: CREATINE KINASE MB 1.8 ng/mL (0-5.0)
[2018-05-04] MEDS ORDERED: HYDRALAZINE HCL 20 MG/ML VIAL IV PRN (20:45)
[2018-05-04] MEDS ORDERED: FAMOTIDINE 20 MG TAB PO SCH (21:00)
[2018-05-04] MEDS ORDERED: SIMVASTATIN 40 MG TAB PO SCH (21:00)
[2018-05-04] MEDS ORDERED: NON-FORMULARY MEDICATION (Ranitidine Hcl 300 MG) PO SCH (21:00)
[2018-05-04 21:43] VITALS: BP 197/89
[2018-05-04] MEDS: INSULIN LISPRO 100 UNIT/1 ML 3ML VIAL SQ SCH (21:48)
[2018-05-04] MEDS: INSULIN DETEMIR 100 UNIT/ML PEN SQ SCH (21:48)
[2018-05-04] MEDS: FUROSEMIDE INJ 10 MG/ML 4 ML VIAL IV SCH (21:54)
[2018-05-04] MEDS: SIMVASTATIN 20 MG TAB PO SCH (21:54)
[2018-05-04] MEDS ORDERED: CLONIDINE HCL 0.1 MG TAB PO SCH (22:00)
[2018-05-05] VITALS: BP 119/51
[2018-05-05 04:00] VITALS: BP 137/58
[2018-05-05] MEDS: ALBUTEROL/IPRATROPIUM 3 ML NEB NEB SCH ×6 (04:05→23:30)
[2018-05-05 05:50] LABS: BASOPHILS % 0.5 % (0.0-1.0); EOSINOPHILS # (AUTO) 0.1 (0.0-0.4); EOSINOPHILS % 2.1 % (0.0-6.0); HEMATOCRIT 36.9 % (34.2-44.1); HEMOGLOBIN 11.8 g/dL (12.0-16.0); LYMPHOCYTES # (AUTO) 1.1 (1.0-3.2); LYMPHOCYTES % 24.1 % (18.0-39.1); MEAN CORPUSCULAR HEMOGLOBIN 32.2 pg (28-32); MEAN CORPUSCULAR VOLUME 100.8 fL (81-99); MONOCYTES # (AUTO) 0.5 (0.2-0.8); MONOCYTES % 11.3 % (4.4-11.3); NEUTROPHILS # (AUTO) 2.7 (2.1-6.9); NEUTROPHILS % 61.8 % (38.7-80.0); PLATELET COUNT 168 x10e3/uL (140-360); RED BLOOD COUNT 3.66 x10e6/uL (3.6-5.1); RED CELL DISTRIBUTION WIDTH 12.9 % (11.7-14.4)
[2018-05-05 06:16] LABS: B-TYPE NATRIURETIC PEPTIDE2 390.4 pg/mL (0-100)
[2018-05-05 06:19] LABS: CREATINE KINASE MB 1.1 ng/mL (0-5.0)
[2018-05-05 06:39] LABS: ANION GAP 10.7 mmol/L (8-16); CALCIUM 8.8 mg/dL (8.4-10.2); CHOL/HDL RATIO 1.9 (3.0-3.6); CREATININE, SERUM 1.01 mg/dL (0.57-1.11); MAGNESIUM 1.8 MG/DL (1.3-2.1); POTASSIUM 3.7 mmol/L (3.5-5.1)
[2018-05-05] MEDS: LEVOTHYROXINE SODIUM 75 MCG TAB PO SCH (06:46)
[2018-05-05] MEDS: FUROSEMIDE INJ 10 MG/ML 4 ML VIAL IV SCH ×2 (06:46→17:19)
[2018-05-05 07:00] LABS: FREE T4 (FREE THYROXINE) 1.01 ng/dL (0.9-1.8); THYROID STIMULATING HORMONE 3.927 uIU/mL (0.350-4.940)
[2018-05-05 08:11] VITALS: BP 111/55
[2018-05-05] MEDS ORDERED: NON-FORMULARY MEDICATION (Losartan Potassium 100 MG) PO SCH (09:00)
[2018-05-05] MEDS ORDERED: METOPROLOL SUCCINATE 25 MG TAB XL PO SCH (09:00)
[2018-05-05] MEDS ORDERED: LISINOPRIL 10 MG TAB PO SCH (09:00)
[2018-05-05] MEDS: ASPIRIN 81 MG CHEW TAB PO SCH (09:43)
[2018-05-05] MEDS: LEVOFLOXACIN 500MG/D5W 100ML 100 ML IV SCH (09:43)
[2018-05-05] MEDS: LISINOPRIL 10 MG TAB PO SCH (09:43)
[2018-05-05] MEDS: PANTOPRAZOLE SOD 40 MG TABEC PO SCH (09:44)
[2018-05-05] MEDS: METOPROLOL SUCCINATE 25 MG TAB XL PO SCH (09:44)
[2018-05-05] MEDS: LOSARTAN POTASSIUM 100 MG TAB PO SCH (09:44)
[2018-05-05] MEDS: INSULIN LISPRO 100 UNIT/1 ML 3ML VIAL SQ SCH ×4 (10:04→21:10)
[2018-05-05 10:30] VITALS: BP 111/65
[2018-05-05 11:48] VITALS: BP 103/81
--- NOTE | 2018-05-05 15:51 | History and Physical ---
PRIMARY CARE PROVIDER: Ponce Parra MD CHIEF COMPLAINT: Shortness of breath. HISTORY OF PRESENT ILLNESS: Ms. Clarke is a 78-year-old lady with worsening shortness of breath for the last 2 days with markedly elevated blood pressure. REVIEW OF SYSTEMS: Patient denies fever, chills or weight loss. She denies sinus congestion or sore throat. She has had some upper respiratory symptoms since the dust cloud from [place]. She denies chest pain or palpitations. She has shortness of breath, dyspnea with exertion, orthopnea and some nonproductive cough. She denies wheezing. She denies abdominal pain, nausea, vomiting or melena. She denies dysuria or flank pain. She denies rash or pruritus. She denies joint pain or swelling. She denies headache, vertigo or loss of consciousness. She denies depression, agitation, homicidal or suicidal ideation. PAST MEDICAL HISTORY: Significant for longstanding hypertension and type-2 diabetes for 40 years. She has CKD 3 with baseline GFR in the mid-50s. She had coronary artery disease with stent placement 5 years ago after an abnormal stress test but no previous NC and no previous history of congestive heart failure. She has a history of left total knee replacement and right ankle open reduction and internal fixation. CURRENT MEDICATIONS: Include: 1. Aspirin 81 mg daily. 2. Lantus 25 units at bedtime. 3. Levothyroxine 75 mcg daily. 4. Losartan 100 mg daily. 5. Metoprolol 25 mg daily. 6. Procardia XL 30 mg daily. 7. Protonix 40 mg daily. 8. Crestor 10 mg at bedtime. 9. Sliding-scale insulin at mealtime. ALLERGIES: SHE HAS A STATED ALLERGY TO PENICILLIN. FAMILY HISTORY: Significant for scattered hypertension, diabetes and heart disease. SOCIAL HISTORY: The patient is . She is bilingual. She speaks some Macedonian. She does not smoke, drink or use illegal drugs. She is generally independently functioning. PHYSICAL EXAMINATION PSYCHIATRIC: She is alert and oriented times 3 with normal mood and affect. CONSTITUTIONAL: She is a little bit overweight. Weight 207 with a BMI of 39. She is in no acute distress. VITAL SIGNS: Blood pressure 111/55. Pulse 67 and regular. Respiratory rate 20. O2 sat 95% on 2 L nasal cannula. Temperature 97.6. HEENT: Head atraumatic. Eyes are anicteric with clear conjunctivae. Ears and nares are without erythema or discharge. Oropharynx is clear. NECK: Supple. No mass or thyromegaly. LYMPHATIC SYSTEM: She has no palpable cervical, axillary or inguinal adenopathy. CARDIOVASCULAR: Her heart has a regular rate and rhythm without murmur or extra heart sound. She has no carotid bruit. She has no peripheral edema. She has weak dorsal pedal pulses. She has some postsurgical changes on the right foot after a diabetic foot ulcer which is well healed. RESPIRATORY: Lungs reveal somewhat diminished breath sounds and some bibasilar rales. Otherwise, normal respiratory effort. GASTROINTESTINAL: Her abdomen is soft without organomegaly, masses or tenderness. She has normal bowel sounds present. CUTANEOUS: Her skin is warm and dry to touch with no rash or skin breakdown. MUSCULOSKELETAL: Joints are in normal alignment without erythema or swelling. She has no calf tenderness. NEUROLOGIC: Exam is nonfocal with intact cranial nerves and no motor or sensory deficits. DIAGNOSTIC STUDIES: Chest x-ray shows cardiomegaly, pulmonary vascular congestion and bibasilar and right linear atelectasis versus pulmonary edema. CT brain shows no acute disease but does show some microvascular changes. Her EKG is completely normal. Reportedly, she had an echo done 6 months ago that showed an EF of 60% to 65%. Her chemistry shows normal electrolytes. CO2 is 39. Creatinine 1.01 and BUN 13 for a GFR of 53. Glucose is 102. Transaminases, bilirubin and alk phos are normal. CBC shows a white count of 4.35 with a normal differential. Hemoglobin 11.8, hematocrit 36.9 and platelet count 168,000. IMPRESSION AND PLAN 1. Bronchopneumonia. The patient is getting IV Levaquin and nebulizer treatments. 2. [id number] diastolic heart failure. Patient will receive IV Lasix times 2 doses, then start p.o. Lasix. Will recheck her echo to assess LV function. 3. Malignant hypertension with hypertensive crisis complicated by coronary artery disease, congestive heart failure and chronic kidney disease, stage 3. The patient's blood pressure was brought down initially with Catapres and hydralazine. Currently have restarted her metoprolol, losartan, and Procardia, and her blood pressure is well controlled. 4. Type-2 diabetes with chronic kidney disease, stage 3. Will continue her Levemir and sliding-scale insulin. 5. Coronary artery disease, currently stable. Will just continue to monitor. Again we are checking an echocardiogram for LV function. 6. For prophylaxis, the patient will be on Lovenox for DVT prophylaxis and Pepcid for GI prophylaxis. Job#: [id number] IMMANUEL
[2018-05-05] MEDS: FAMOTIDINE 20 MG TAB PO SCH (17:19)
[2018-05-05] MEDS: ENOXAPARIN SOD INJ 40 MG/0.4 ML SYR SC SCH (17:19)
[2018-05-05 20:48] VITALS: BP 125/57
[2018-05-05] MEDS: INSULIN DETEMIR 100 UNIT/ML PEN SQ SCH (21:10)
[2018-05-05] MEDS: SIMVASTATIN 20 MG TAB PO SCH (21:23)
[2018-05-06] VITALS (7 sets, daily range): BP systolic 106–176; BP diastolic 53–74
[2018-05-06] MEDS: FUROSEMIDE INJ 10 MG/ML 4 ML VIAL IV SCH (00:10)
[2018-05-06] MEDS: ALBUTEROL/IPRATROPIUM 3 ML NEB NEB SCH ×6 (03:01→23:05)
[2018-05-06 05:28] LABS: BASOPHILS % 0.2 % (0.0-1.0); EOSINOPHILS # (AUTO) 0.1 (0.0-0.4); EOSINOPHILS % 2.2 % (0.0-6.0); HEMATOCRIT 37.3 % (34.2-44.1); HEMOGLOBIN 11.9 g/dL (12.0-16.0); LYMPHOCYTES # (AUTO) 1.3 (1.0-3.2); LYMPHOCYTES % 25.3 % (18.0-39.1); MEAN CORPUSCULAR HEMOGLOBIN 32.2 pg (28-32); MEAN CORPUSCULAR HGB CONC 31.9 g/dL (31-35); MEAN CORPUSCULAR VOLUME 100.8 fL (81-99); MONOCYTES # (AUTO) 0.6 (0.2-0.8); NEUTROPHILS # (AUTO) 3.1 (2.1-6.9); NEUTROPHILS % 61.1 % (38.7-80.0); PLATELET COUNT 173 x10e3/uL (140-360); RED CELL DISTRIBUTION WIDTH 13.1 % (11.7-14.4)
[2018-05-06 05:45] LABS: ANION GAP 13.6 mmol/L (8-16); CALCIUM 8.8 mg/dL (8.4-10.2); CREATININE, SERUM 1.22 mg/dL (0.57-1.11); POTASSIUM 3.6 mmol/L (3.5-5.1)
[2018-05-06 05:50] LABS: B-TYPE NATRIURETIC PEPTIDE2 66.3 pg/mL (0-100)
[2018-05-06 06:10] LABS: THYROID STIMULATING HORMONE 2.841 uIU/mL (0.350-4.940)
[2018-05-06] MEDS: LEVOTHYROXINE SODIUM 75 MCG TAB PO SCH (06:28)
[2018-05-06] MEDS: INSULIN LISPRO 100 UNIT/1 ML 3ML VIAL SQ SCH ×4 (08:09→21:37)
[2018-05-06] MEDS: FAMOTIDINE 20 MG TAB PO SCH ×2 (08:19→16:33)
[2018-05-06] MEDS: PANTOPRAZOLE SOD 40 MG TABEC PO SCH (08:20)
[2018-05-06] MEDS: ASPIRIN 81 MG CHEW TAB PO SCH (08:20)
[2018-05-06] MEDS: FUROSEMIDE 40 MG TAB PO SCH (08:20)
[2018-05-06] MEDS: LOSARTAN POTASSIUM 100 MG TAB PO SCH (08:20)
[2018-05-06] MEDS: LEVOFLOXACIN 500MG/D5W 100ML 100 ML IV SCH (08:20)
[2018-05-06] MEDS: METOPROLOL SUCCINATE 25 MG TAB XL PO SCH (08:21)
[2018-05-06] MEDS ORDERED: CLONIDINE HCL 0.1 MG TAB PO PRN (09:30)
[2018-05-06] MEDS: GUAIFENESIN 600 MG TAB PO SCH ×3 (12:05→23:37)
[2018-05-06] MEDS: ACETAMINOPHEN 325 MG TAB PO PRN (14:16)
[2018-05-06] MEDS: ENOXAPARIN SOD INJ 40 MG/0.4 ML SYR SC SCH (16:34)
[2018-05-06] MEDS: SIMVASTATIN 20 MG TAB PO SCH (21:36)
[2018-05-06] MEDS: INSULIN DETEMIR 100 UNIT/ML PEN SQ SCH (21:37)
[2018-05-07] VITALS (9 sets, daily range): BP systolic 99–143; BP diastolic 44–65
[2018-05-07] MEDS: ALBUTEROL/IPRATROPIUM 3 ML NEB NEB SCH ×6 (03:15→23:06)
[2018-05-07] MEDS: LEVOTHYROXINE SODIUM 75 MCG TAB PO SCH (05:16)
[2018-05-07] MEDS: GUAIFENESIN 600 MG TAB PO SCH ×4 (05:16→23:29)
[2018-05-07 06:27] LABS: BASOPHILS % 0.5 % (0.0-1.0); EOSINOPHILS # (AUTO) 0.2 (0.0-0.4); EOSINOPHILS % 3.8 % (0.0-6.0); HEMATOCRIT 37.4 % (34.2-44.1); HEMOGLOBIN 12.1 g/dL (12.0-16.0); LYMPHOCYTES # (AUTO) 1.4 (1.0-3.2); LYMPHOCYTES % 25.2 % (18.0-39.1); MEAN CORPUSCULAR HEMOGLOBIN 32.7 pg (28-32); MEAN CORPUSCULAR HGB CONC 32.4 g/dL (31-35); MEAN CORPUSCULAR VOLUME 101.1 fL (81-99); MONOCYTES # (AUTO) 0.6 (0.2-0.8); MONOCYTES % 10.3 % (4.4-11.3); NEUTROPHILS # (AUTO) 3.3 (2.1-6.9); PLATELET COUNT 189 x10e3/uL (140-360)
[2018-05-07 06:41] LABS: ANION GAP 11.5 mmol/L (8-16); CREATININE, SERUM 1.19 mg/dL (0.57-1.11); MAGNESIUM 1.8 MG/DL (1.3-2.1); POTASSIUM 3.5 mmol/L (3.5-5.1)
[2018-05-07] MEDS: INSULIN LISPRO 100 UNIT/1 ML 3ML VIAL SQ SCH ×4 (07:30→21:26)
[2018-05-07] MEDS: LEVOFLOXACIN 500MG/D5W 100ML 100 ML IV SCH (08:38)
[2018-05-07] MEDS: FAMOTIDINE 20 MG TAB PO SCH ×2 (08:38→17:21)
[2018-05-07] MEDS: PANTOPRAZOLE SOD 40 MG TABEC PO SCH (08:38)
[2018-05-07] MEDS: ASPIRIN 81 MG CHEW TAB PO SCH (08:38)
[2018-05-07] MEDS: LOSARTAN POTASSIUM 100 MG TAB PO SCH (08:38)
[2018-05-07] MEDS: FUROSEMIDE 40 MG TAB PO SCH (08:38)
[2018-05-07] MEDS: METOPROLOL SUCCINATE 25 MG TAB XL PO SCH (08:38)
[2018-05-07] MEDS: ACETAMINOPHEN 325 MG TAB PO PRN (11:59)
[2018-05-07] MEDS: ENOXAPARIN SOD INJ 40 MG/0.4 ML SYR SC SCH (17:21)
[2018-05-07] MEDS: SIMVASTATIN 20 MG TAB PO SCH (21:17)
[2018-05-07] MEDS: INSULIN DETEMIR 100 UNIT/ML PEN SQ SCH (21:27)
[2018-05-08] VITALS: BP 169/75
[2018-05-08 00:41] VITALS: BP 169/75
[2018-05-08] MEDS: ALBUTEROL/IPRATROPIUM 3 ML NEB NEB SCH ×4 (03:03→14:50)
[2018-05-08 04:20] VITALS: BP 136/62
[2018-05-08 04:32] LABS: BASOPHILS % 0.4 % (0.0-1.0); EOSINOPHILS # (AUTO) 0.2 (0.0-0.4); EOSINOPHILS % 3.7 % (0.0-6.0); HEMATOCRIT 36.2 % (34.2-44.1); HEMOGLOBIN 11.6 g/dL (12.0-16.0); LYMPHOCYTES # (AUTO) 1.6 (1.0-3.2); LYMPHOCYTES % 32.7 % (18.0-39.1); MEAN CORPUSCULAR HEMOGLOBIN 32.4 pg (28-32); MEAN CORPUSCULAR VOLUME 101.1 fL (81-99); MONOCYTES # (AUTO) 0.6 (0.2-0.8); MONOCYTES % 11.7 % (4.4-11.3); NEUTROPHILS # (AUTO) 2.5 (2.1-6.9); NEUTROPHILS % 51.3 % (38.7-80.0); PLATELET COUNT 181 x10e3/uL (140-360); RED BLOOD COUNT 3.58 x10e6/uL (3.6-5.1)
[2018-05-08 05:00] LABS: ANION GAP 11.6 mmol/L (8-16); CALCIUM 8.8 mg/dL (8.4-10.2); CREATININE, SERUM 1.07 mg/dL (0.57-1.11); MAGNESIUM 1.9 MG/DL (1.3-2.1); POTASSIUM 3.6 mmol/L (3.5-5.1)
[2018-05-08] MEDS: LEVOTHYROXINE SODIUM 75 MCG TAB PO SCH (05:49)
[2018-05-08] MEDS: GUAIFENESIN 600 MG TAB PO SCH ×2 (05:49→12:20)
[2018-05-08] MEDS ORDERED: LEVEMIR100 UNIT/1 SQ (06:07)
[2018-05-08 07:20] VITALS: BP 177/72
[2018-05-08] MEDS: INSULIN LISPRO 100 UNIT/1 ML 3ML VIAL SQ SCH ×2 (07:30→12:21)
[2018-05-08 09:01] VITALS: BP 177/72
[2018-05-08] MEDS: ASPIRIN 81 MG CHEW TAB PO SCH (09:07)
[2018-05-08] MEDS: PANTOPRAZOLE SOD 40 MG TABEC PO SCH (09:07)
[2018-05-08] MEDS: LEVOFLOXACIN 500MG/D5W 100ML 100 ML IV SCH (09:07)
[2018-05-08] MEDS: METOPROLOL SUCCINATE 25 MG TAB XL PO SCH (09:08)
[2018-05-08] MEDS: LOSARTAN POTASSIUM 100 MG TAB PO SCH (09:08)
[2018-05-08] MEDS: FAMOTIDINE 20 MG TAB PO SCH (09:08)
[2018-05-08] MEDS: FUROSEMIDE 40 MG TAB PO SCH (09:08)
[2018-05-08] MEDS ORDERED: BISACODYL 5 MG TAB EC PO ONE (09:30)
[2018-05-08] MEDS ORDERED: NIFEDIPINE CR 30 MG TAB PO SCH (09:30)
[2018-05-08] MEDS ORDERED: NIFEDIPINE ER30 M1 PO (09:40)
[2018-05-08] MEDS ORDERED: CATAPRES0.1 MG PO (09:40)
[2018-05-08] MEDS ORDERED: MUCINEX600 MG PO (09:40)
[2018-05-08] MEDS ORDERED: LEVAQUIN500 MG PO (09:40)
[2018-05-08] MEDS ORDERED: COLACE100 M1 PO (09:40)
[2018-05-08] MEDS ORDERED: PROAIR HFA INH8.5 GM INH (09:40)
[2018-05-08] MEDS ORDERED: NIFEDIPINE CR 30 MG TAB PO ONE (09:45)
[2018-05-08 12:20] VITALS: BP 151/69
--- NOTE | 2018-05-08 14:00 | Diagnostic Imaging Report ---
PROCEDURE:X-RAY MODIFIED BARIUM SWALLOW COMPARISON:None. INDICATIONS:Not provided. DISCUSSION:Fluoroscopic examination was performed in conjunction with speech pathology, during swallowing of a variety of thin and thick liquid consistencies. Fluoroscopy time; 1:11 min Cumulative air kerma: 6.19 mGy CONCLUSION:No aspiration. Penetration visualized with mixed fruit texture only. Please see the report from speech pathology for complete details. Dictated by: Saw Mckeon M.D. on 05/08/2018 at 14:05 Electronically approved by: Saw Mckeon M.D. on 05/08/2018 at 14:05
--- NOTE | 2018-05-08 15:57 | Discharge Summary ---
ADMISSION DIAGNOSES 1. Bronchopneumonia. 2. [id number]-[id number] diastolic heart failure. 3. Malignant hypertension with hypertensive crisis complicated by coronary artery disease, congestive heart failure and chronic kidney disease 3. 4. Type 2 diabetes with chronic kidney disease 3. 5. Coronary artery disease. DISCHARGE DIAGNOSES 1. Bronchopneumonia. 2. Hykus-sc-emypbzm diastolic heart failure. 3. Malignant hypertension with hypertensive crisis complicated by coronary artery disease, congestive heart failure and chronic kidney disease 3. 4. Type 2 diabetes with chronic kidney disease 3. 5. Coronary artery disease. HISTORY: Patient has a history of hypertension, type 2 diabetes, CKD-3 with a GFR baseline in the mid 50s, CAD with stent placement 5 years ago after an abnormal stress test, surgical history of left total knee replacement and right ankle open reduction and internal fixation. HOSPITAL COURSE: A 78-year-old female with worsening shortness of breath for 2 days admits to the ER with markedly elevated blood pressure. Patient was started on IV Lasix and IV Levaquin as well as neb treatments and Mucinex. An echo was done. Patient's blood pressure medications from home were started and clonidine p.r.n. added. Chest x-ray on admission showed enlarged cardiac silhouette with central pulmonary venous congestion and perihilar interstitial opacities. Worsening linear opacities in right mid to lower lobe likely reflects subsegmental atelectasis. Patchy right infrahilar and left lower lobe opacities likely atelectasis. CT of the brain showed no acute abnormalities, moderate chronic microvascular ischemic changes. Blood cultures were negative x72 hours. Vital signs stable, patient afebrile. On day of discharge sodium 142, potassium 3.6, creatinine of 1.07, GFR of 50. WBC of 4.89, hemoglobin 11.6, hematocrit 36.2. Due to hypoxia and CHF, the patient will discharge home with an oxygen tank. Patient and daughter understand discharge instructions. Due to cough with swallowing, patient also underwent an MBS that showed no aspiration. Per speech therapy recommendation, the patient is not to mix liquids with solids. Patient will discharge home and follow up as discussed. Dictated by: Susanna Baugh NP PITO AZEVEDO MD Job#: [id number] EV
[2018-05-08] MEDS ORDERED: DOCUSATE SODIUM 100 MG CAP PO SCH (17:00)
[2018-05-08] MEDS ORDERED: POLYETHYLENE GLYCOL 3350 17 GM PACK PO SCH (17:00)
[2018-05-09] MEDS ORDERED: NIFEDIPINE CR 30 MG TAB PO SCH (09:00)
== END 2018-05-08 16:49 | disposition home health service (06) | DRG 193 ==
LOC: ER 10:20 → ERHOLD 13:43 → MED/SURG 15:19
PROVIDERS: ADMIT Internal Medicine; ATTEND Internal Medicine
DX: J18.0 Bronchopneumonia, unspecified organism (principal); N18.6 End stage renal disease; I50.33 Acute on chronic diastolic (congestive) heart failure; I13.0 Hypertensive heart and chronic kidney disease with heart failure and stage 1 through stage 4 chronic kidney disease, or unspecified chronic kidney disease; I16.9 Hypertensive crisis, unspecified; N17.9 Acute kidney failure, unspecified; N18.3 Chronic kidney disease, stage 3 (moderate); E11.22 Type 2 diabetes mellitus with diabetic chronic kidney disease; Z79.4 Long term (current) use of insulin; I25.10 Atherosclerotic heart disease of native coronary artery without angina pectoris; R09.02 Hypoxemia; K59.00 Constipation, unspecified; Z95.5 Presence of coronary angioplasty implant and graft; Z91.010 Allergy to peanuts; E03.9 Hypothyroidism, unspecified; Z79.52 Long term (current) use of systemic steroids; E78.5 Hyperlipidemia, unspecified
CPT/HCPCS: 36415; 70450; 71045; 74230; 80048; 80053; 80061; 81001; 82550; 82553; 82948; 83036; 83605; 83735; 83880; 84439; 84443; 84484; 85025; 87040; 93005; 93306; 94640; 96372; 97139; 99284; J0360; J1650; J1940; J1956; J7050